=== PATIENT | female | born 1995 | race Caucasian/White ===

== ENCOUNTER 2021-12-04 23:23 | Emergency (ER) | payer BC, MEDICAID ==
[~2021-12-04] VITALS: Ht 168 cm; Wt 84.0 kg
--- NOTE | 2021-12-04 23:41 | ED GU-Female ---
General Chief Complaint: OB < 20 WEEKS Stated Complaint: 5 WKS&5DAYS ,ABD PAIN,VAGINAL BLEEDING Source: patient Exam Limitations: no limitations History of Present Illness Date Seen by Provider: Dec 04, 2021 Time Seen by Provider: 23:30 Initial Comments 26-year-old female who is approximately 6 weeks presents to the e mergency department for abdominal pain, vaginal bleeding. Pain is lower abdomen, cramping without radiation. No aggravating or alleviating factors. Pain started yesterday, bleeding started today. She has only used 1 pad today. She is G2, P1 indicating her current . Denies any fevers chills nausea or vomiting. No urinary symptoms or changes in bowels. Allergies and Home Medications Allergies Coded Allergies: No Known Drug Allergies (Unverified , 12/04/21) Patient Home Medication List Home Medication List Reviewed: Yes No Active Prescriptions or Reported Meds Review of Systems Review of Systems Constitutional: no symptoms reported EENTM: no symptoms reported Respiratory: no symptoms reported Cardiovascular: no symptoms reported Gastrointestinal: no symptoms reported Genitourinary: other (vaginal bleeding, pelvic cramping) Musculoskeletal: no symptoms reported Skin: no symptoms reported Psychiatric/Neurological: No Symptoms Reported Endocrine: No Symptoms Reported Hematologic/Lymphatic: No Symptoms Reported Past Mgktyat-Ixklbi-Rfnkuy Hx Patient Social History Tobacco Use?: Yes Substance use?: No Alcohol Use?: No Pt feels they are or have been: No Immunizations Up To Date First/Initial COVID19 Vaccinat: none Past Medical History Surgery/Hospitalization HX: denies Family Medical History Reviewed Nursing Family Hx No Pertinent Family Hx Physical Exam Vital Signs Vital Signs - First Documented 12/04/21 23:29 Temp 37.0 Pulse 105 Resp 16 B/P (MAP) 138/93 (108) Pulse Ox 98 O2 Delivery Room Air Capillary Refill : Height, Weight, BMI Height: '" Weight: lbs. oz. kg; BMI Method: General Appearance: WD/WN, no apparent distress HEENT: normal ENT inspection, pharynx normal Neck: non-tender, full range of motion, supple, normal inspection Cardiovascular: regular rate, rhythm, no edema, no gallop, no JVD, no murmur Respiratory: chest non-tender, lungs clear, normal breath sounds, no r espiratory distress, no accessory muscle use Gastrointestinal: normal bowel sounds, non tender, soft, no organomegaly, no pulsatile mass Extremities: normal range of motion, non-tender, normal inspection, no pedal edema, no calf tenderness Neurologic/Psychiatric: alert, normal mood/affect, oriented x 3 Skin: normal color, warm/dry Progress/Results/Core Measures Suspected Sepsis SIRS Temperature: Pulse: Respiratory Rate: Laboratory Tests 12/04/21 23:41: White Blood Count 6.9 Blood Pressure / Mean: Laboratory Tests 12/04/21 23:41: Creatinine 0.82, Platelet Count 242 Results/Orders Lab Results Laboratory Tests Test 12/04/21 01:00 12/04/21 23:41 12/04/21 23:46 Range/Units White Blood Count 6.9 4.3-11.0 10^3/uL Red Blood Count 4.10 3.80-5.11 10^6/uL Hemoglobin 12.4 11.5-16.0 g/dL Hematocrit 38 35-52 % Mean Corpuscular Volume 92 80-99 fL Mean Corpuscular Hemoglobin 30 25-34 pg Mean Corpuscular Hemoglobin Concent 33 32-36 g/dL Red Cell Distribution Width 12.2 10.0-14.5 % Platelet Count 242 130-400 10^3/uL Mean Platelet Volume 11.0 9.0-12.2 fL Immature Granulocyte % (Auto) 0 % Neutrophils (%) (Auto) 57 42-75 % Lymphocytes (%) (Auto) 31 12-44 % Monocytes (%) (Auto) 9 0-12 % Eosinophils (%) (Auto) 3 0-10 % Basophils (%) (Auto) 1 0-10 % Neutrophils # (Auto) 4.0 1.8-7.8 10^3/uL Lymphocytes # (Auto) 2.1 1.0-4.0 10^3/uL Monocytes # (Auto) 0.6 0.0-1.0 10^3/uL Eosinophils # (Auto) 0.2 0.0-0.3 10^3/uL Basophils # (Auto) 0.0 0.0-0.1 10^3/uL Immature Granulocyte # (Auto) 0.0 0.0-0.1 10^3/uL Sodium Level 140 135-145 MMOL/L Potassium Level 3.8 3.6-5.0 MMOL/L Chloride Level 110 H 98-107 MMOL/L Carbon Dioxide Level 21 21-32 MMOL/L Anion Gap 9 5-14 MMOL/L Blood Urea Nitrogen 7 7-18 MG/DL Creatinine 0.82 0.60-1.30 MG/DL Estimat Glomerular Filtration Rate 102 BUN/Creatinine Ratio 9 Glucose Level 96 70-105 MG/DL Calcium Level 8.6 8.5-10.1 MG/DL Human Chorionic Gonadotropin, Quant 790 H <5 MIU/ML Urine Color YELLOW Urine Clarity CLEAR Urine pH 7.0 5-9 Urine Specific Norris 1.020 1.016-1.022 Urine Protein NEGATIVE NEGATIVE Urine Glucose (UA) NEGATIVE NEGATIVE Urine Ketones NEGATIVE NEGATIVE Urine Nitrite NEGATIVE NEGATIVE Urine Bilirubin NEGATIVE NEGATIVE Urine Urobilinogen 0.2 < = 1.0 MG/DL Urine Leukocyte Esterase NEGATIVE NEGATIVE Urine RBC (Auto) 3+ H NEGATIVE Urine RBC 10-25 H /HPF Urine WBC NONE /HPF Urine Crystals NONE /LPF Urine Bacteria NEGATIVE /HPF Urine Casts NONE /LPF Urine Mucus NEGATIVE /LPF Urine Culture Indicated NO My Orders Orders - HECTOR CARNEY DO Abo Rh Type (12/04/21 23:28) Cbc With Automated Diff (12/04/21 23:28) Basic Metabolic Panel (12/04/21 23:28) Ua Culture If Indicated (12/04/21 23:28) Hcg,Quantitative (12/04/21 23:36) Neisseria Gonorrhea Swab (12/04/21 23:37) Wet Prep (12/04/21 23:37) Vital Signs/I&O 12/04/21 23:29 Temp 37.0 Pulse 105 Resp 16 B/P (MAP) 138/93 (108) Pulse Ox 98 O2 Delivery Room Air Capillary Refill : Departure Communication (Admissions) Pt has non surgical exam. Os slightly opened on exam. No visible products of conception. Hcg slightly low. No US available, dont believe it emergently necessary at this time. rH +, no rhogam required. She will call to schedule OB f/u and given strict return precautions. Impression Primary Impression: Threatened Disposition: 01 HOME, SELF-CARE Condition: Stable Departure-Patient Inst. Referrals: EVAN MURCIA DO (PCP/Family) Primary Care Physician Patient Instructions: Threatened Miscarriage (DC) Add. Discharge Instructions: Return immediately for any severe abdominal pain, dizziness, light headedness. Call Dr Hogan on Monday to schedule follow up sometime this week. All discharge instructions reviewed with patient and/or family. Voiced understa nding. Scripts No Active Prescriptions or Reported Meds ROMMELHECTOR CAVNAAUGH DO Dec 04, 2021 23:41
[2021-12-04 23:56] LABS: BASOPHILS % (AUTO) 1 % (0-10); EOSINOPHILS # (AUTO) 0.2 10^3/uL (0.0-0.3); EOSINOPHILS % (AUTO) 3 % (0-10); HEMATOCRIT 38 % (35-52); HEMOGLOBIN 12.4 g/dL (11.5-16.0); LYMPHOCYTES # (AUTO) 2.1 10^3/uL (1.0-4.0); LYMPHOCYTES % (AUTO) 31 % (12-44); MEAN CORPUSCULAR HEMOGLOBIN 30 pg (25-34); MEAN CORPUSCULAR HGB CONC 33 g/dL (32-36); MEAN CORPUSCULAR VOLUME 92 fL (80-99); MONOCYTES # (AUTO) 0.6 10^3/uL (0.0-1.0); MONOCYTES % (AUTO) 9 % (0-12); NEUTROPHILS % (AUTO) 57 % (42-75); PLATELET COUNT 242 10^3/uL (130-400); WHITE BLOOD COUNT 6.9 10^3/uL (4.3-11.0)
[2021-12-04 23:58] LABS: BILIRUBIN,URINE NEGATIVE (NEGATIVE); CLARITY,URINE CLEAR; COLOR,URINE YELLOW; GLUCOSE, URINE (UA) NEGATIVE (NEGATIVE); KETONES,URINE NEGATIVE (NEGATIVE); LEUKOCYTE ESTERASE ,URINE NEGATIVE (NEGATIVE); NITRITE,URINE NEGATIVE (NEGATIVE); PROTEIN,URINE NEGATIVE (NEGATIVE)
[2021-12-05 00:10] LABS: POTASSIUM 3.8 MMOL/L (3.6-5.0)
[2021-12-05 00:11] LABS: CALCIUM 8.6 MG/DL (8.5-10.1)
[2021-12-05 00:15] LABS: CREATININE SERUM 0.82 MG/DL (0.60-1.30)
[2021-12-05 00:48] LABS: BACTERIA,URINE NEGATIVE /HPF
[2021-12-05 01:07] VITALS: BP 132/91
== END 2021-12-05 01:09 | disposition home or self-care (01) ==
LOC: ER 23:27
DX: O20.0 Threatened abortion (principal); Z3A.01 Less than 8 weeks gestation of pregnancy; Z28.310 Unvaccinated for COVID-19
CPT/HCPCS: 36415; 80048; 81000; 84702; 85025; 86900; 86901; 87210; 87591